=== PATIENT | female | born 1985 | race Caucasian/White ===

== ENCOUNTER 2016-12-19 19:55 | Observation (INO) | payer OTHER ==
[2016-12-19 20:36] VITALS: BMI 31.6
[2016-12-19] MEDS ORDERED: Sodium Chloride 0.9% 1,000 ML IV STA (22:25)
--- NOTE | 2016-12-19 22:28 | ED PDOC ---
HPI: General Adult Time Seen by Provider: 12/19/16 22:12 Chief Complaint (Nursing): Dizziness/Lightheaded Chief Complaint (Provider): dizziness History Per: Patient History/Exam Limitations: no limitations Onset/Duration Of Symptoms: Days (5), Waxing/Waning Current Symptoms Are (Timing): Gone Now Additional History Per: Patient Additional Complaint(s): 31 y/o female, approx 34 weeks gestation presents for eval of intermittent dizziness x 5 days. Patient states she started with vaginal spotting 5 days ago. Patient then noticed dizziness to present, random onset, described as "room spinning", worse with movement of head. Symptoms are not associated with headaches or vomiting, but patient concerned because she has a long drive to and from work and did have an episode while driving. Patient also has been experiencing nausea/vomiting at night time, especially when laying flat on her back. States she feels a "burning sensation" in her chest and then will vomit. Patient notes 3lb weight loss. Patient denies fever, headache, extremity numbness/weakness, vision changes, chest pain, shortness of breath, palpitations, abdominal pain, urinary symptoms. Patient seen by her human resources temp Dr. Cuevas today and was sent to ED for further eval. Patient evaluated and cleared on TONIA Past Medical History Reviewed: Historical Data, Nursing Documentation, Vital Signs Vital Signs: Last Vital Signs Temp 97.9 F 12/20/16 02:15 Pulse 75 12/20/16 02:15 Resp 16 12/20/16 02:15 BP 115/69 12/20/16 02:15 Pulse Ox 100 12/20/16 02:15 - Medical History PMH: No Chronic Diseases - Surgical History Surgical History: Appendectomy - Family History Family History: States: Unknown Family Hx - Immunization History Hx Tetanus Toxoid Vaccination: Yes Hx Influenza Vaccination: Yes Hx Pneumococcal Vaccination: Yes - Home Medications Home Medications: Ambulatory Orders Medication Instructions Recorded Vit Calc,Iron,Folic 1 tab PO DAILY 12/19/16 [ Vitamins] - Allergies Allergies/Adverse Reactions: Allergies Allergy/AdvReac Type Severity Reaction Status Date / Time No Known Allergies Allergy Verified 12/19/16 20:36 Review of Systems ROS Statement: Except As Marked, All Systems Reviewed And Found Negative Gastrointestinal: Positive for: Nausea, Vomiting Neurological: Positive for: Dizziness Physical Exam - Reviewed Nursing Documentation Reviewed: Yes Vital Signs Reviewed: Yes - Physical Exam Appears: Positive for: Well, Non-toxic, No Acute Distress Head Exam: Positive for: ATRAUMATIC, NORMAL INSPECTION, NORMOCEPHALIC Skin: Positive for: Normal Color Eye Exam: Positive for: EOMI, PERRL, Nystagmus (horizontal, bilateral) ENT: Positive for: Normal ENT Inspection Cardiovascular/Chest: Positive for: Regular Rate, Rhythm Respiratory: Positive for: Normal Breath Sounds Gastrointestinal/Abdominal: Positive for: Normal Exam Back: Positive for: Normal Inspection Extremity: Positive for: Normal ROM Neurologic/Psych: Positive for: Alert, Oriented - Laboratory Results Result Diagrams: 12/19/16 23:32 12/19/16 23:32 - ECG O2 Sat by Pulse Oximetry: 99 - Progress ED Course And Treament: labs, urine, IV fluids On re-eval, patient complaining of heart burn, IV pepcid ordered. Patient tried to drink water and began retching. Patient now actively vomiting. IV reglan ordered Case discussed with Dr. Luther, covering for Dr. Cuevas, who does not feel symptoms related to hyperemesis, recommends medicine admission. Dr. Belle spoke with Dr. Eugene, medical service on-call, for placement in observation for dehydration, intractable vomiting. Disposition - Clinical Impression Clinical Impression: Intractable vomiting, Dehydration - Patient ED Disposition Is Patient to be Admitted: Yes - Disposition Disposition Time: 04:02 Condition: FAIR
[2016-12-19 23:40] LABS: BASO # 0.1 K/uL (0.0-0.2); BASO % 0.6 % (0.0-2.0); EOS # 0.3 K/uL (0.0-0.7); EOS % 2.8 % (0.0-4.0); HEMATOCRIT 36.1 % (34.0-47.0); LYMPH # 2.7 K/uL (1.0-4.3); LYMPH % 29.1 % (20.0-40.0); MEAN CELL VOLUME 83.1 fl (81.0-99.0); MEAN CORPUSCULAR HGB CONC 32.5 g/dL (33.0-37.0); MEAN PLATELET VOLUME 8.4 fl (7.2-11.7); MONO # 0.9 K/uL (0.0-0.8); NEUT # 5.3 K/uL (1.8-7.0); NEUT % 57.5 % (50.0-75.0); NRBC % 0.1 % (0.0-0.0); RED CELL DISTRIBUTION WIDTH 14.3 % (11.5-14.5); WHITE BLOOD COUNT 9.1 K/uL (4.8-10.8)
[2016-12-19 23:45] LABS: ALKALINE PHOSPHATASE 125 U/L (38-126); ALT/SGPT 26 U/L (9-52); AST/SGOT 20 U/L (14-36); BILIRUBIN,TOTAL 0.5 mg/dl (0.2-1.3); BLOOD UREA NITROGEN 8 mg/dl (7-17); CALCIUM 8.9 mg/dL (8.4-10.2); CARBON DIOXIDE 18 mmol/L (22-30); CHLORIDE 106 mmol/L (98-107); GFR AFRICAN-AMERICAN > 60; GLUCOSE,RANDOM 114 mg/dL (65-105); POTASSIUM 3.7 MMOL/L (3.6-5.0); SODIUM 137 mmol/l (132-148); TOTAL PROTEIN 6.5 G/DL (6.3-8.2)
[2016-12-20 00:15] LABS: THYROID STIMULATING HORMONE 0.88 mIU/ML (0.46-4.68)
--- NOTE | 2016-12-20 01:02 | OBHP ---
Datetime: 12/19/2016 21:02 IP Adm Impression: , intrauterine IP Admit Plan: Observation/Evaluation Admit Comment, IP Provider: 31yo edc 01/28 by 9wk us @ 34.3wks with c/o spotting x4days, blurry and dizziness x 3dasy, emesis x1wk usually in evening, and pelvic pressure. She denies diarrhea, fev er, ctxs, srom. No coitus x1mo. +chlamydia with current preg in 05/2016 obhx: x2; sab x4 pmhx: denies pshx: denies nkda medic: pnv shx: denies etoh, drugs or tobacco use I: 34.2wks no evidenc of ptl reactive nst GI symptoms P: to ED for further eval f/u with dr andrea as sched'd Pelvic Type - PN: Adequate Extremities - PN: Normal Abdomen - PN: Normal Lungs - PN: Normal Heart - PN: Normal Neurologic - PN: Normal HEENT - PN: Normal General - PN: Normal Membranes, Provider: Intact Comments, ACOG Physical Exam: O+, HepB, hiv, rpr neg; RI SSE: cl/th/high; no blood or lesions IP Chief Complaint: Illness Dilatation, Provider: 0 Effacement, Provider: 0 Station, Provider: -4 Genitourinary Exam: Normal
[2016-12-20 01:03] LABS: RBC URINE 2 /hpf (0-3); URINE BACTERIA RARE (<OCC); URINE BILIRUBIN NEGATIVE (NEGATIVE); URINE BLOOD NEGATIVE (NEGATIVE); URINE COLOR YELLOW (YELLOW); URINE GLUCOSE (UA) NEG (Normal); URINE KETONE NEGATIVE (NEGATIVE); URINE LEUKOCYTE ESTERASE NEG Leu/uL (Negative); URINE PROTEIN NEGATIVE (NEGATIVE); URINE UROBILINOGEN 0.2-1.0 mg/dL (0.2-1.0); WBC URINE 2 /hpf (0-5)
[2016-12-20 08:21] VITALS: RESP 20
[2016-12-20] MEDS ORDERED: Patient's Own Med (Prenatal Vit Calc,Iron,Folic [Prenatal Vitamins] 1 TAB) PO SCH (09:00)
[2016-12-20] MEDS ORDERED: Prenatal Multivit/Folic Acid/Iron Tab PO SCH (09:00)
[2016-12-20] MEDS ORDERED: Dextrose 5%/0.9% NS 1,000 ML IV SCH (13:15)
[2016-12-20 15:53] VITALS: O2SAT 100
[2016-12-20 19:05] VITALS: BP 122/81; PULSE 77; TEMP 98.1
== END 2016-12-20 19:32 | disposition home or self-care (01) ==
LOC: H.EROB2 19:55 → H.ERHOLD 12-20 02:39 → H.TEL 12-20 04:11
PROVIDERS: ADMIT Internal Medicine; ATTEND Internal Medicine
DX: O26.893 Other specified pregnancy related conditions, third trimester (principal); Z3A.34 34 weeks gestation of pregnancy; E86.0 Dehydration; R42 Dizziness and giddiness; Z86.19 Personal history of other infectious and parasitic diseases
CPT/HCPCS: 80053; 81003; 83690; 84443; 85025; 87491; 87591; 96360; 96374; 99285; G0378; J2765; J7040; J7042

== ENCOUNTER 2017-01-14 11:14 | Inpatient (IN) | payer OTHER ==
[2017-01-14 11:19] VITALS: BMI 31.8
--- NOTE | 2017-01-14 12:16 | OBHP ---
Datetime: 01/14/2017 11:45 IP Adm Impression: Term, intrauterine ; No Active Labor; Intact Membranes IP Admit Plan: Admit to unit Admit Comment, IP Provider: IUP at 38w c/o ctx x2d; no SROM no VB +FM She had sonogram done and followed for IUGR/SGA 13% AC 3%; HC and BPD < 5%. Recommmended delivery at 38w - obtain report from [facility] today PNC: CP Dr Mason ZUNIGABGYH: Chl x 1 in preg treated; spont ab x 4; x 2 PMH: denies PSH: deneis NKA PSoH: denies smoking ETOH drugs A: IUP at 38w IUGR PLAN: discussoin with [facility] dept...recommended IOL at 38w discussed wtih pt. She understands condition, IOL, labor, pain meds, medictoina for IOL, delivery and care Admit to L_D Pelvic Type - PN: Adequate Extremities - PN: Normal Abdomen - PN: Normal Back - PN: Normal Breast - PN: Not Done Lungs - PN: Normal Heart - PN: Normal Thyroid - PN: Normal Neurologic - PN: Normal HEENT - PN: Normal General - PN: Normal Presentation-Admit: Vertex FHR - Baseline A Provider: 140 Membranes, Provider: Intact Comments, ACOG Physical Exam: ROS: General: no weakness; no fatigue HEENT: no DILLARD; no visual dist CV: no palpitations; no no CP GI: no N/V no diarhea : no F/U/D MS: No joint pain Pool Provider: Negative IP Hx Assessment: The History has been Reviewed and is Current EGA AdmitDate IP: 38.0 IP Chief Complaint: Uterine contractions NICHD Variability Prov Fetus A: Moderate 6-25bpm NICHD Accel Fetus A IP Provider: [id number] FHR Category Provider Fetus A: Category I NICHD Decel Fetus A IP Provider: None Dilatation, Provider: 0 Effacement, Provider: 0 Genitourinary Exam: Normal DTRs - PN: Normal
--- NOTE | 2017-01-14 12:19 | OBADHP ---
Datetime: 01/14/2017 12:16 Admit Comment, IP Provider: ROS: General: no weakness; no fatigue HEENT: no DILLARD; no visual dist CV: no palpitations; no no CP GI: no N/V no diarhea : no F/U/D MS: No joint pain Pelvic Type - PN: Adequate Extremities - PN: Normal Abdomen - PN: Normal Back - PN: Normal Breast - PN: Not Done Lungs - PN: Normal Heart - PN: Normal Thyroid - PN: Normal Neurologic - PN: Normal HEENT - PN: Normal General - PN: Normal Presentation-Admit: Vertex IP Chief Complaint: Uterine contractions NICHD Variability Prov Fetus A: Moderate 6-25bpm NICHD Accel Fetus A IP Provider: [id number] FHR Category Provider Fetus A: Category I Genitourinary Exam: Normal DTRs - PN: Normal EGA AdmitDate IP: 38.0 IP Adm Impression: Term, intrauterine ; No Active Labor; Intact Membranes IP Admit Plan: Admit to unit; Initiate labor induction protocol Datetime: 01/14/2017 11:45 FHR - Baseline A Provider: 140 Membranes, Provider: Intact Comments, ACOG Physical Exam: ROS: General: no weakness; no fatigue HEENT: no DILLARD; no visual dist CV: no palpitations; no no CP GI: no N/V no diarhea : no F/U/D MS: No joint pain Pool Provider: Negative IP Hx Assessment: The History has been Reviewed and is Current NICHD Decel Fetus A IP Provider: None Dilatation, Provider: 0 Effacement, Provider: 0 Datetime: 12/19/2016 21:02 Station, Provider: -4
[2017-01-14 12:35] LABS: BASO # 0.1 K/uL (0.0-0.2); BASO % 1.4 % (0.0-2.0); EOS # 0.1 K/uL (0.0-0.7); LYMPH # 2.3 K/uL (1.0-4.3); LYMPH % 34.2 % (20.0-40.0); MEAN CELL VOLUME 82.3 fl (81.0-99.0); MEAN CORPUSCULAR HEMOGLOBIN 26.8 pg (27.0-31.0); MEAN CORPUSCULAR HGB CONC 32.6 g/dL (33.0-37.0); MEAN PLATELET VOLUME 8.8 fl (7.2-11.7); MONO # 0.6 K/uL (0.0-0.8); MONO % 9.3 % (0.0-10.0); NEUT # 3.6 K/uL (1.8-7.0); NEUT % 53.1 % (50.0-75.0); RED CELL DISTRIBUTION WIDTH 14.8 % (11.5-14.5); WHITE BLOOD COUNT 6.8 K/uL (4.8-10.8)
[2017-01-14] MEDS ORDERED: Lidocaine 1% Inj (20ml) ONE (12:39)
--- NOTE | 2017-01-14 14:22 | OBPN ---
Datetime: 01/14/2017 13:10 IP Progress Note Comment: Cervidil placed intravaginally Datetime: 01/14/2017 12:16 Presentation-Admit: Vertex NICHD Accel Fetus A IP Provider: [id number] FHR Category Provider Fetus A: Category I NICHD Variability Prov Fetus A: Moderate 6-25bpm Datetime: 01/14/2017 11:45 Pool Provider: Negative Membranes, Provider: Intact FHR - Baseline A Provider: 140 Dilatation, Provider: 0 Effacement, Provider: 0 NICHD Decel Fetus A IP Provider: None Datetime: 12/19/2016 21:02 Station, Provider: -4
[2017-01-14 16:48] VITALS: O2SAT 100
[2017-01-14] MEDS ORDERED: Lactated Ringer's 1,000 ML IV SCH ×2 (19:00→20:45)
[2017-01-14] MEDS ORDERED: Bicitra 30 ML UD PO ONE (19:58)
[2017-01-14] MEDS ORDERED: Nalbuphine 20 mg/ml Inj (1 ml) IVP PRN (20:43)
[2017-01-14] MEDS ORDERED: Oxytocin 10 Units/ml Inj ONE (22:47)
[2017-01-14] MEDS ORDERED: Oxytocin 30 units/LR 500ML 30 U/500 ML BAG IV ONE (22:51)
[2017-01-14] MEDS ORDERED: Oxycodone/Acetaminophen 5/325 mg Tab PO PRN ×3 (23:02→23:52)
--- NOTE | 2017-01-14 23:14 | OBDS ---
MATERNAL INFORMATION Provider Comments: Proptosis and a precipitous delivery infant delivered at 10:41 p.m. upon arrival the baby was on maternal chest crying spontaneously nose and mouth were then suctioned with the polic e suction trap and the cord was clamped and cut and 3 vessels noted. Cord blood was obtained and sent to the lab. The placenta was delivered at 10:45 PM intact. The estimated blood loss was 150 mL. Ther e were no vaginal lacerations mother tolerated procedure well the patient was the well baby nursery w ith Apgars of 8 and 9 weighing 2540 g LABOR SUMMARY EDC: 01/28/2017 00:00 No. Babies in Womb: 1 LABOR INFORMATION Cervical Ripening Agents: Cervidil Group B Beta Strep: Negative VAGINAL DELIVERY Episiotomy: None Laceration Extension: N/A Laceration Type: None Laceration Repair: Not Applicable Sponge Count Correct: Yes Sharps Count Correct: N/A
[2017-01-15] MEDS: Oxycodone/Acetaminophen 5/325 mg Tab PO PRN ×2 (05:43→16:59)
[2017-01-15 06:39] LABS: HEMATOCRIT 35.4 % (34.0-47.0); MEAN CELL VOLUME 81.6 fl (81.0-99.0); MEAN CORPUSCULAR HEMOGLOBIN 27.2 pg (27.0-31.0); MEAN CORPUSCULAR HGB CONC 33.4 g/dL (33.0-37.0); RED CELL DISTRIBUTION WIDTH 14.5 % (11.5-14.5); WHITE BLOOD COUNT 10.4 K/uL (4.8-10.8)
--- NOTE | 2017-01-15 12:34 | OBPPN ---
Datetime: 01/15/2017 12:24 PP Pain Prov: Within normal limits PP Nausea Prov: Denies PP Flatus Prov: Yes PP Breasts Prov: Not Done PP Heart Prov: Normal PP Lungs Prov: Normal PP Abdomen/Uterus Prov: Not Done PP Lochia Prov: Not Done PP Vulva/Perineum Prov: Not Done PP CVA Tenderness Prov: Normal PP Extremities Prov: Normal PP Impression Prov: Normal progression PP Plan Prov: Continue present management PP Progress Note Prov: Patient doing well reports minimal discomfort voiding without difficulty and reports minimal lochia Vital signs stable afebrile The uterus firm below the umbilicus Extremities no Homans day #1 Motrin as needed, ambulate, regular diet, Discharge in a.m. Vital Signs Provider PP: Reviewed
[2017-01-16] MEDS: Oxycodone/Acetaminophen 5/325 mg Tab PO PRN ×2 (02:28→08:08)
--- NOTE | 2017-01-16 08:57 | OBPPN ---
Datetime: 01/16/2017 08:54 PP Pain Prov: Within normal limits PP Nausea Prov: Denies PP Abdomen/Uterus Prov: Normal PP Lochia Prov: Normal PP Extremities Prov: Normal PP Progress Prov: Normal PP Impression Prov: Normal progression PP Plan Prov: Discharge PP Progress Note Prov: PPD 2 s/p , doing well, breast and bottle feeding Rx motrin given Discharge home today Vital Signs Provider PP: Reviewed
--- NOTE | 2017-01-16 08:59 | OBDCSUM ---
Datetime: 01/16/2017 08:56 Discharged to, Provider: Home Follow up at, Provider: Dr. Cuevas Disch Instr Activity: Normal activity; May be up for meals; May Shower Disch Instr Diet: Regular Discharge Instructions, Provider: Routine instructions given Discharge Diagnosis, Provider: Term Delivered Discharge Time: 01/16/2017 08:56 Follow up in weeks, Provider: 6 weeks Contraception discussed, Prov: No Disch Activity Restrictions: No exercising; No lifting; No sexual activity; Nothing in vagina - Inte rcourse, tampons, douche
[2017-01-16 23:40] VITALS: BP 124/64; PULSE 62; RESP 20; TEMP 98
== END 2017-01-16 19:30 | disposition home or self-care (01) | DRG 775 ==
LOC: H.EROB2 11:14 → H.L&D 11:18 → H.EROB2 11:48 → H.L&D 11:49 → H.OB/GYN 01-15 00:40
PROVIDERS: ADMIT Obstetrics & Gynecology; ATTEND Obstetrics & Gynecology
PROC: 10E0XZZ Delivery of Products of Conception, External Approach (ICD-10-PCS; principal; 2017-01-14)
PROC: 4A1HXCZ Monitoring of Products of Conception, Cardiac Rate, External Approach (ICD-10-PCS; 2017-01-14)
DX: O36.5930 Maternal care for other known or suspected poor fetal growth, third trimester, not applicable or unspecified (principal); Z37.0 Single live birth; Z3A.38 38 weeks gestation of pregnancy